=== PATIENT | female | born 1975 | race Caucasian/White ===

== ENCOUNTER 2023-06-06 11:11 | Emergency (ER) | payer OTHER ==
[2023-06-06] VITALS (7 sets, daily range): BP systolic 108–146; BP diastolic 50–89
[~2023-06-06] VITALS: Ht 180.3 cm; Wt 107.5 kg
[2023-06-06 11:33] LABS: BASO% 0.5 % (0-3); EOS% 2.9 % (0-8); HEMATOCRIT 41.6 % (37.0-47.0); HEMOGLOBIN 13.7 g/dl (12.0-16.0); IMMATURE GRANULOCYTES 0.1 % (0.0-5.0); LYMPH% 31.6 % (15-41); MEAN CORPUSCULAR HGB 29.7 pG CALC (26.0-32.0); MEAN CORPUSCULAR HGB CONC 32.9 g/dL CAL (32.0-36.0); MONO% 5.8 % (2-13); NEUT# 4.31 thou/uL (2.00-7.15); NEUT% 59.1 % (42-76); RED BLOOD COUNT 4.62 mill/uL (4.20-5.60); RED CELL DISTRI WIDTH 12.5 % (11.5-15.5)
[2023-06-06] MEDS ORDERED: LEXAPRO10 MG PO (11:50)
[2023-06-06] MEDS ORDERED: LAMICTAL25 M1 PO (11:51)
[2023-06-06] MEDS ORDERED: TOPAMAX200 MG PO (11:51)
[2023-06-06 11:56] LABS: PROTHROMBIN TIME 9.7 SECONDS (9.0-12.5)
[2023-06-06 11:59] LABS: ALBUMIN 4.3 g/dL (3.2-5.0); BILIRUBIN, TOTAL 0.5 mg/dL (0.02-1.3); CREATININE 1.2 mg/dL (0.5-1.0); POTASSIUM 3.7 mmol/l (3.5-5.1); TOTAL PROTEIN 7.9 g/dL (6.3-8.2)
[2023-06-06 12:42] LABS: URINE BILIRUBIN - DIPSTICK NEGATIVE (NEGATIVE); URINE BLOOD DIPSTICK NEGATIVE (NEGATIVE); URINE COLOR YELLOW; URINE GLUCOSE - DIPSTICK NEGATIVE (NEGATIVE); URINE KETONE Negative (NEGATIVE); URINE NITRITE - DIPSTICK NEGATIVE (Negative); URINE PROTEIN - DIPSTICK NEGATIVE (NEG-TRACE); URINE SPECIFIC GRAVITY 1.025; URINE UROBILINOGEN - DIPSTICK 0.2 E.U./dL (0.2)
[2023-06-06 12:43] LABS: URINE LEUK ESTERASE NEGATIVE (NEGATIVE)
== END 2023-06-06 13:55 | disposition home or self-care (01) | DRG 101 ==
LOC: ED 11:11
PROVIDERS: Family Medicine
DX: G40.109 Localization-related (focal) (partial) symptomatic epilepsy and epileptic syndromes with simple partial seizures, not intractable, without status epilepticus (principal)